=== PATIENT | male | born 1940 | race African-American/Black ===

== ENCOUNTER 2016-11-06 21:56 | Emergency (ER) | payer MEDICARE, OTHER ==
[~2016-11-06 21:56] MED LIST: AMPICILLIN500 MG PO; CALCIUM 6001 TAB PO; CLONIDINE0.1 MG PO; DICLOFENAC SODI75 MG PO; DILTIAZEM120 M2; DILTIAZEM120 M2 PO; DILTIAZEM120 MG PO; DILTIAZEM180 M1 OR; DIPYRIDAMOLE25 MG OR; DIPYRIDAMOLE25 MG PO; EQ ASPIRIN325 M1 PO; FUROSEMIDE40 MG PO; GLIPIZIDE5 MG PO; HYDRALAZINE25 MG PO; HYDROCHLOROT25 MG OR; KLOR-CON 1010 ME1 PO; LISINOPRIL10 MG PO; METOPROL TAR100 MG PO; METOPROL TAR25 M1 PO; MINOXIDIL10 MG; MINOXIDIL10 MG PO; MULTIVITAMI9 PO; NORVASC2.5 MG PO; OXY1; PERSANTINE25 MG OR; RELION ULTIMA T1 TES XX; ROCALTROL0.25 MCG PO; TOPROL XL OR; TYLENOL # 31 TA1 PO; ULTRAM50 M1 PO
== END 2016-11-06 22:07 | disposition expired ==
LOC: ED 21:56
PROC: 5A12012 Performance of Cardiac Output, Single, Manual (ICD-10-PCS; principal; 2016-11-06)
DX: I46.9 Cardiac arrest, cause unspecified (principal); I10 Essential (primary) hypertension; I69.90 Unspecified sequelae of unspecified cerebrovascular disease